=== PATIENT | female | born 1995 | race Caucasian/White ===

== ENCOUNTER → 2024-11-23 07:03 | Outpatient (CLI) | payer OTHER, SELFPAY ==
--- NOTE | 2024-11-23 07:07 | DI.US.S_ITS ---
PROCEDURE: US OB <= 14 WEEKS FETUS INDICATIONS: RIGHT OVARIAN CYST ON 1ST TRIMESTER US AT [employer] OFF[facility] OUTSIDE/PRIOR DATING DATA: Last menstrual period (LMP): 09/05/2024. LMP-based estimated date of delivery (FRANDY): 06/12/2025. First dating scan (date and location): 11/23/2024. Estimated date of delivery (FRANDY) from first dating scan: 06/09/2025. The calculations are made using the clinical FRANDY of 06/12/2025. TECHNIQUE: Real-time scanning was performed of the fetus and maternal pelvic organs, with image documentation. Endovaginal scanning was also performed to better visualize the fetus and maternal ovaries. COMPARISON: None. FINDINGS: Embryo: Single live intrauterine is identified with crown-rump length measuring 5 cm corresponding to 11 weeks 5 days. Perigestational hemorrhage is present measuring 1.8 x 1.9 x 1.8 cm. Heart rate: 163 beats per Maternal organs: Ovaries demonstrate probable right corpus luteal cyst.. IMPRESSION: Single live intrauterine with gestational age of 11 weeks 5 days. Small perigestational hemorrhage. We strive to produce accurate, complete, and clear reports of imaging services. To assist us in improving patient care, this report was composed using standard report templates and voice recognition software. Therefore, it may contain abnormal punctuation, insertions and/or omissions. Occasional wrong-word or sound-alike substitutions may occur. Though we review the report and make efforts to correct it, we do recommend that the report be read carefully in proper context to recognize any text inaccuracies. Dictated by: Lin Swenson M.D. on 11/23/2024 at 21:46 Approved by: Lin Swenson M.D. on 11/23/2024 at 21:47
== END ==
LOC: US 07:06
PROVIDERS: Referring Provider Advanced Practice Midwife; Visit Provider Advanced Practice Midwife
DX: O28.3 Abnormal ultrasonic finding on antenatal screening of mother (principal); O46.8X1 Other antepartum hemorrhage, first trimester; Z3A.11 11 weeks gestation of pregnancy
CPT/HCPCS: 76801; 76817

== ENCOUNTER → 2025-01-24 09:23 | Outpatient (CLI) | payer OTHER, SELFPAY ==
--- NOTE | 2025-01-24 09:24 | DI.US.S_ITS ---
PROCEDURE: US OB >= 14 WEEKS FETUS INDICATIONS: 20 weeks anatomy scan OUTSIDE/PRIOR DATING DATA: Last menstrual period (LMP): September 05, 2024. LMP-based estimated date of delivery (FRANDY): June 12, 2025. First dating scan (date and location): November 23, 2024. Estimated date of delivery (FRANDY) from first dating scan: June 09, 2025. The calculations are made using the clinical FRANDY of June 12, 2025. TECHNIQUE: Real-time scanning was performed of the fetus, with image documentation and biometric measurements. Endovaginal scanning: Not performed COMPARISON: None. FINDINGS: General: A single living intrauterine gestation is present. Presentation: Breech. Placenta: Placental position is anterior , without previa. Amniotic fluid index: 12.0 cm, normal range is 5-24 cm. Single deepest vertical pocket is 3.3 cm. heart rate: 135 beats per minute. Maternal cervical canal: 3.5 cm long. Normal lower limit is 2.5 cm. biometrics: Biparietal diameter: 4.6 cm, 19 weeks and 6 days Head circumference: 17.7 cm, 20 weeks and 1 day Abdominal circumference: 15.6 cm, 20 weeks and 5 days Femur length: 3.3 cm, 20 weeks and 3 days Clinically estimated gestational age: 20 weeks and 1 day Composite gestational age from present scan: 20 weeks and 2 days Estimated weight and percentile: 361 g which correlates with the 69th percentile for gestational age. Anatomic survey: Neuro: Ventricles are non-dilated at less than 10 mm. Cisterna magna is normal at 3-11 mm. Cerebellum is normal in size and morphology. Nuchal skin fold: Normal at less than 6 mm between 14-21 weeks gestational age. Face: Nose and lips, facial profile are normal. Spine: No evidence for spina bifida. Heart: 4-chambered heart is present, with normal ventricular outflow tracts. Questionable echogenic focus in the right ventricle. Diaphragm: Diaphragm is intact. Stomach: Left-sided stomach is present. Kidneys: No hydronephrosis. Normal is less than 5 mm in 2nd trimester, less than 7 mm in 3rd trimester. Cord: 3-vessel cord has orthotopic insertion. Bladder: Normal in size. Extremities: All 4 extremities identified. IMPRESSION: Single living intrauterine gestation with estimated sonographic gestational age of approximately 20 weeks and 2 days versus approximately 20 weeks and 1 day based off last menstrual period. Measurements are concordant. Estimated weight of approximately 361 g which correlates with the 69th percentile for gestational age. Possible echogenic focus within the right ventricle which is a nonspecific finding. In the absence of other anatomic abnormalities or maternal risk factors, this finding is most likely a normal variant either representing the normal papillary muscle or chordae tendinae and is of doubtful clinical significance. Otherwise, normal routine second trimester anatomic screening survey. We strive to produce accurate, complete, and clear reports of imaging services. To assist us in improving patient care, this report was composed using standard report templates and voice recognition software. Therefore, it may contain abnormal punctuation, insertions and/or omissions. Occasional wrong-word or sound-alike substitutions may occur. Though we review the report and make efforts to correct it, we do recommend that the report be read carefully in proper context to recognize any text inaccuracies. Dictated by: Yevgeniy Lloyd M.D. on 01/24/2025 at 14:46 Approved by: Yevgeniy Lloyd M.D. on 01/24/2025 at 15:28
== END ==
LOC: US 09:24
PROVIDERS: Referring Provider Nurse Practitioner Obstetrics & Gynecology; Visit Provider Nurse Practitioner Obstetrics & Gynecology
DX: Z34.92 Encounter for supervision of normal pregnancy, unspecified, second trimester (principal); Z3A.20 20 weeks gestation of pregnancy
CPT/HCPCS: 76811

== ENCOUNTER → 2025-06-13 12:57 | Outpatient (CLI) | payer OTHER, SELFPAY ==
--- NOTE | 2025-06-13 13:00 | DI.US.S_ITS ---
PROCEDURE: US OB LIMITED INDICATIONS: UTERINE SIZE DISCREPANCY OUTSIDE/PRIOR DATING DATA: Last menstrual period (LMP): 09/05/2024 LMP-based estimated date of delivery (FRANDY): 06/12/2025 First dating scan (date and location): 11/23/2024 Estimated date of delivery (FRANDY) from first dating scan: 06/09/2025 The calculations are made using the working FRANDY of 06/12/2025. TECHNIQUE: Real-time scanning was performed of the fetus, with image documentation and biometric measurements. Endovaginal scanning: Not performed COMPARISON: None. FINDINGS: General: A single living intrauterine gestation is present. Presentation: Vertex Placenta: Placental position is anterior, without previa. Amniotic fluid index: 1.5 cm, normal range is 5-24 cm. Single deepest vertical pocket is 1.5 cm. heart rate: 133 beats per minute. Maternal cervical canal: Not well seen. biometrics: Biparietal diameter: 9.2 cm, 37 weeks, 2 days. Head circumference: 33.2 cm, 37 weeks, 6 days. Abdominal circumference: 34.3 cm, 38 weeks, 2 days. Femur length: 7.5 cm, 38 weeks, 1 day. Clinically estimated gestational age: 40 weeks, 1 day Composite gestational age from present scan: 37 weeks, 6 days. Estimated weight and percentile: 3383 g, 29%. Umbilical artery Doppler: 3.0, 2.2 and 2.00. IMPRESSION: 1. Single live intrauterine gestation with fetus in vertex presentation. heart rate is 133 beats per minute. NORY is 1.5 cm suggestive of oligohydramnios. 2. Estimated weight is at 29%. 3. Normal umbilical artery S/D ratio. We strive to produce accurate, complete, and clear reports of imaging services. To assist us in improving patient care, this report was composed using standard report templates and voice recognition software. Therefore, it may contain abnormal punctuation, insertions and/or omissions. Occasional wrong-word or sound-alike substitutions may occur. Though we review the report and make efforts to correct it, we do recommend that the report be read carefully in proper context to recognize any text inaccuracies. Dictated by: Alex Rosas M.D. on 06/13/2025 at 14:05 Approved by: Alex Rosas M.D. on 06/13/2025 at 14:10
== END ==
PROVIDERS: Referring Provider Nurse Practitioner Obstetrics & Gynecology; Visit Provider Nurse Practitioner Obstetrics & Gynecology
DX: O26.843 Uterine size-date discrepancy, third trimester (principal); Z3A.37 37 weeks gestation of pregnancy
CPT/HCPCS: 76815